=== PATIENT | male | born 1980 | race Caucasian/White ===

== ENCOUNTER 2017-09-25 20:30 | Observation (INO) | payer BC ==
[~2017-09-25] VITALS: Ht 193 cm; Wt 132.0 kg
[~2017-09-25 20:30] MED LIST: ACETAMINOPHEN-1 EAC1 PO; CLEOCIN HCL300 MG PO; HYDROCODONE-AP1 EAC6 PO; NEXIUM 40 MG CA40 M1 PO; VENTOLIN HFA 1818 GM INH; ZPAK PO
[2017-09-25 20:39] VITALS: BP 126/85
[2017-09-25] MEDS ORDERED: IMITREX100 MG PO (20:44)
[2017-09-25 21:15] LABS: ABSOLUTE EOSINOPHILS 0.1 thou/uL (0.0-0.7); ABSOLUTE LYMPHOCYTES 1.3 thou/uL (0.8-5.3); ABSOLUTE MONOCYTES 0.4 thou/uL (0.0-1.2); BASOPHILS 0.6 %; EOSINOPHILS 3.1 %; HEMATOCRIT 42.8 % (42.0-52.0); LYMPHOCYTES 34.5 %; MCH 28.7 pg (26.0-34.0); MCHC 32.8 g/dL (28.0-37.0); MCV 87.3 fL (80.0-100.0); MONOCYTES 10.5 %; MPV 8.7 fl. (7.2-11.1); NUCLEATED RBCS 0 /100WBC; PLATELET COUNT* 153 thou/uL (150-400); POLYS 51.3 %; RDW-CV 13.1 % (10.5-14.5); WBC 3.8 thou/uL (4.0-11.0)
[2017-09-25 21:19] LABS: ANION GAP 8 mmol/L (7-16); BUN 14 mg/dL (7-18); CALCIUM 8.9 mg/dL (8.5-10.1); CHLORIDE 106 mmol/L (98-107); CO2 27 mmol/L (21-32); CREATININE 1.1 mg/dL (0.6-1.3); GLUCOSE 99 mg/dL (70-99); POTASSIUM 4.3 mmol/L (3.5-5.1); SODIUM 141 mmol/L (136-145)
[2017-09-25 21:26] LABS: ALBUMIN 4.1 g/dL (3.4-5.0); ALKALINE PHOSPHATASE 56 U/L (46-116); SGOT 15 U/L (15-37); SGPT 35 U/L (30-65); TOTAL BILIRUBIN 0.6 mg/dL (<0.1-1.0); TOTAL PROTEIN 7.1 g/dL (6.4-8.2); TROPONIN-I LEVEL <0.06 ng/mL (<0.06)
[2017-09-25 21:30] LABS: INR 1.1; PROTIME 10.7 Seconds (9.20-11.50)
[2017-09-25 23:40] VITALS: BP 125/80
[2017-09-26 00:10] VITALS: BP 128/86
[2017-09-26 04:40] LABS: HEMATOCRIT 41.4 % (42.0-52.0); HEMOGLOBIN 13.6 gm/dL (14.0-18.0); MCH 28.6 pg (26.0-34.0); MCHC 32.8 g/dL (28.0-37.0); MCV 87.4 fL (80.0-100.0); MPV 9.7 fl. (7.2-11.1); RBC 4.73 mil/uL (4.50-6.00); RDW-CV 13.3 % (10.5-14.5); WBC 3.8 thou/uL (4.0-11.0)
[2017-09-26 05:14] LABS: ALBUMIN 3.5 g/dL (3.4-5.0); CALCIUM 8.5 mg/dL (8.5-10.1); POTASSIUM 4.3 mmol/L (3.5-5.1); TOTAL BILIRUBIN 0.6 mg/dL (<0.1-1.0)
--- NOTE | 2017-09-26 05:15 | NUR ---
PT ADMITTED FROM ER AT 2355. PT MOVED SEFL TO BED, GAIT STEADY. PT DENIES PAIN AND NUMBNESS AT THIS TIME. TELEMETRY PACK APPLIED WITH ALARMS SET. IV D5 1/2 WITH 20 KCL STARTED AND INFUSING AT 120CC/HR VIA PUMP. PT ORIENTED TO ROOM, BED CONTORLS, NURSE CALL BUTTON AND TV CONTROLS. PT VERBALIZED GOOD UNDERSTANDING. PT NPO AND IS AWARE OF STATUS. NO ACUTE CHANGES DURING SHIFT, WILL CONTINUE TO MONITOR
[2017-09-26 08:00] VITALS: BP 129/69
--- NOTE | 2017-09-26 09:29 | NUR ---
INITIAL ASSESSMENT: Pt evaluated for d/c planning needs. Reviewed chart. Pt lives in house with spouse and children. Pt was independent with ADL's and is employed outside the home. Pt plans on returning home on d/c from hospital. Will remain available to assist as needed.
--- NOTE | 2017-09-26 10:37 | EKG ---
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 Pilot: rivera trujillo : 1980 Requested By: Lucrecia Sanchez Order Number: [id number] MD: Michael Siddiqui Measurements Intervals [place] Rate: 51 P: 29 NH: 186 QRS: 4 QRSD: 101 T: 6 QT: 440 QTc: 406 Interpretive Statements Sinus bradycardia Left ventricular hypertrophy ST elev, probable normal early repol pattern Compared to ECG 05/03/2016 13:22:27 Left ventricular hypertrophy now present Electronically Signed On 09-26-2017 10:37:03 CDT by Michael Siddiqui [email or web address] <ELECTRONICALLY SIGNED> By: Michael Siddiqui MD, [facility] 09/26/17 1037 2150 49 Michael Siddiqui MD, [facility] /EPI
--- NOTE | 2017-09-26 11:00 | NUR ---
ASSUMED CARE OF REPORT AFTER REPORT AT 0730. PT A&OX4. VSS. PHYSICAL ASSESSMENT COMLPETED AND CHARTED. PT ON RA WITH 97% O2 SAT. PT IV LINE PATENT AND INTACT. PT UP ADLIB. PT IS SR/SB ON TELE. PT COMPLAINED OF HEADACHE WITH PAIN SCALE OF 2/10-DONT WANT ANY PAIN MEDS. RESUMED REGULAR DIET. MRI AND ECHO DONE.CALL LIGHT WITHIN REACH. WILL CONTINUE TO MONITOR PT.
[2017-09-26 12:04] VITALS: BP 129/77
--- NOTE | 2017-09-26 13:55 | 2DMMODE ---
[place] [address] 2 D/M-MODE ECHOCARDIOGRAM Name: INDIGO PERRY Room: [facility] ADM IN [facility]#: [id number] Admission: 09/25/17 Attend Phys: Ji Jefferson Discharge: Date of : 78 Date of Service: 09/26/17 1355 Report #: [id number] THIS REPORT FOR: //name// APPROVED REPORT Study performed: 09/26/2017 11:11:37 EXAM: Comprehensive 2D, Doppler, and color-flow Echocardiogram Patient Location: In-Patient Room #: [facility] Status: routine BSA: 2.60 HR: 48 bpm BP: 128/86 mmHg Rhythm: NSR Other Information Study Quality: Good Indications CVA/TIA Echo Enhancing Agent Indication: Rule out Shunt Agent(s) / Amount(s) Used: Agitated Saline 10 cc 2D Dimensions LVEF(%): 68.05 (>50%) IVSd: 12.37 (7-11mm) LVOT Diam: 22.92 (18-24mm) LVDd: 53.82 mm PWd: 11.78 (7-11mm) Ascending Ao: 31.75 (22-36mm) LVDs: 33.21 (25-40mm) Aortic Root: 38.61 mm Bernard's LVEF: 68.05 % Volumes Left Atrial Volume (Systole) LA ESV Index: 31.80 mL/m2 Aortic Valve AoV Peak Geovani.: 1.22 m/s AO Peak Gr.: 5.92 mmHg LVOT Max P.58 mmHg AO Mean Gr.: 3.37 mmHg LVOT Mean P.48 mmHg LVOT Max V: 1.18 m/s AO V2 VTI: 25.93 cm LVOT Mean V: 0.71 m/[place] [address] 2 D/M-MODE ECHOCARDIOGRAM Name: IDNIGO PERRY Room: [place] [address] ADM IN .R.#: [id number] Admission: 09/25/17 Attend Phys: Ji Jefferson Discharge: Date of : 78 Date of Service: 09/26/17 1355 Report #: [id number] CANDIS (VTI): 4.07 cm2 LVOT V1 VTI: 25.56 cm Mitral Valve E/A Ratio: 2.13 MV Decel. Time: 205.12 ms MV E Max Geovani.: 0.84 m/s MV PHT: 59.49 ms MVA (PHT): 3.70 cm2 TDI E/Lateral E': 4.00 E/Medial E': 7.64 Medial E' Geovani.: 0.11 m/s Lateral E' Geovani.: 0.21 m/s Pulmonary Valve PV Peak Geovani.: 1.03 m/s PV Peak Gr.: 4.27 mmHg Tricuspid Valve TR Peak Gr.: 24.87 mmHg RVSP: 29.00 mmHg Left Ventricle The left ventricle is normal size. There is normal LV segmental wall motion. Mild concentric left ventricular hypertrophy. Left ventricular systolic function is normal. The left ventricular ejection fraction is within the normal range. LVEF is 55-60%. The left ventricular diastolic function is normal. Right Ventricle Right ventricle is dilated. The right ventricular systolic function is normal. Atria Left atrium is mildly dilated. moderate right to left shunt at the interatrial level consistent with a PFO or ASD The right atrium size is normal. Aortic Valve The aortic valve is normal in structure. No aortic regurgitation is present. There is no aortic valvular stenosis. Mitral Valve The mitral valve is normal in structure. There is no mitral valve regurgitation noted. No evidence of mitral valve stenosis. Tricuspid Valve The tricuspid valve is normal in structure[place] [address] 2 D/M-MODE ECHOCARDIOGRAM Name: INDIGO PERRY Room: [place] [address] ADM IN M.R.#: [id number] Admission: 09/25/17 Attend Phys: Ji Jefferson Discharge: Date of : 78 Date of Service: 09/26/17 1355 Report #: [id number] regurgitation. The RVSP is ___29____ mmHg. Pulmonic Valve The pulmonary valve is normal in structure. There is no pulmonic valvular regurgitation. Great Vessels The aortic root is normal in size. IVC is normal in size and collapses with >50% inspiration Pericardium There is no pericardial effusion. <Conclusion> Mild concentric left ventricular hypertrophy. Right ventricle is dilated. Left atrium is mildly dilated. moderate right to left shunt at the interatrial level consistent with a PFO or ASD LVEF is 55-60%. <ELECTRONICALLY SIGNED> By: Michael Siddiqui MD, FACC 09/26/17 1355 1355 1355 Michael Siddiqui MD, FACC /INF
[2017-09-26 15:17] VITALS: BP 137/76
[2017-09-26] MEDS ORDERED: AMITRIPTYLINE H10 M3 PO (17:21)
[2017-09-26 17:26] VITALS: BP 137/76
--- NOTE | 2017-09-26 17:53 | NUR ---
ORDERS RECEIVED FOR DC. DISCONTINUED IV LINE AND FIELD ASSOCIATE. DC EDUCATION AND TEACHING GIVEN. WRITTEN EDUCATION AND SCRIPTS GIVEN. ALL QUESTIONS AND CONCERNS ADDRESSED. BELONGINGS PACKED AND ACOOUNTED FOR PT AND .PT ESCORTED PER TECH VIA WHEELCHAIR AT 1755. NO PROBLEMS TO NOTE AT TIME OF DC.
--- NOTE | 2017-09-26 18:02 | NUR ---
this RN has reviewed the charting, assesments and notes of Shayy NARANJO and agrees with charting. Pt discharged home with at approx 1800
--- NOTE | 2017-09-30 18:19 | CON ---
[address] [address] CONSULTATION Name: INDIGO PERRY DIANA Room: [address] IN M.R.#: [id number] Admission: 09/25/17 Attend Phys: Melany Quevedo Discharge: 09/26/17 Date of : 78 Report #: [id number] THIS REPORT FOR: //name// CC: Александр Jefferson DATE OF SERVICE: 09/26/2017 PRIMARY CARE PHYSICIAN: Dr. Joseph HISTORY OF PRESENT ILLNESS: The patient is a 37-year-old white male who I was asked to see in the hospital today because of a PFO. The patient has no history of heart disease. He does have a history of migraine headaches. He was seen by the neurologist at [facility] in [facility]. However, yesterday he had some numbness in the right side of his face. He came to the Emergency Room and was admitted to [place]. He was felt to have a TIA secondary to migraines. An echocardiogram showed evidence of PFO. I was asked to see him for further evaluation and treatment. He denies any history of heart murmur or chest pain. He does get short of breath with exertion. He has had no palpitations or syncope. PAST MEDICAL HISTORY: Significant for knee surgery, cholecystectomy, sinus surgery and hiatal hernia. MEDICATIONS: He takes Nexium. ALLERGIES: He has no known drug allergies. FAMILY HISTORY: His father had a heart attack. SOCIAL HISTORY: He is . He lives in [place]. 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 No smoking or alcohol abuse. REVIEW OF SYSTEMS: No history of stroke, asthma, peptic ulcer disease, liver disease, kidney disease, cancer or psychiatric illness. PHYSICAL EXAMINATION: GENERAL: Revealed a middle-aged male, appeared in no distress. VITAL SIGNS: He had a blood pressure of 130/70 and pulse 60. He is afebrile. HEENT: He is anicteric. Conjunctivae pink. Mucous membranes are moist. NECK: Neck veins are not distended. No carotid bruits. Neck is supple. CHEST: Clear to auscultation. CARDIOVASCULAR: Regular rate and rhythm without murmur. ABDOMEN: Soft and nontender. EXTREMITIES: Had no edema. Posterior tibial pulse 2+ [place] [address] CONSULTATION Name: INDIGO PERRY Room: [address]#: [id number] Admission: 09/25/17 Attend Phys: Melany Quevedo Discharge: 09/26/17 Date of : 78 Report #: [id number] SKIN: Warm and dry. NEUROLOGIC: Nonfocal. LABORATORY DATA: ECG showed a sinus rhythm with sinus bradycardia, no significant ST or T-wave changes. Lab work: The patient had sodium 143 and creatinine 1.0. Liver function studies were normal. TSH 2.6. White blood cell count 3.8 and hemoglobin 13.6. X-rays: The patient had a chest x-ray that showed normal heart size and clear lung eckert. IMPRESSION AND RECOMMENDATIONS: 1. PFO. Incidental finding. 2. Migraine headaches. If refractory to medical therapy, would consider percutaneous closure of the PFO. With this in mind, I have recommended an outpatient AZAM to assess the PFO. 3. Hiatal hernia. <ELECTRONICALLY SIGNED> By: Michael Siddiqui MD, [facility] 09/30/17 1819 1645 [id number] Siddiqui MD, FAC /nt
[2017-10-01] MEDS ORDERED: PREDNISONE10 MG PO (08:25)
[2017-10-01] MEDS ORDERED: ASPIRIN325 PO (10:07)
== END 2017-09-26 17:59 | disposition home or self-care (01) ==
LOC: M.ERS 20:30 → M.TBA-ER 23:03 → M.2W 23:03
PROVIDERS: Emergency Medicine; ADMIT Internal Medicine
DX: G43.809 Other migraine, not intractable, without status migrainosus (principal); Q21.1 Atrial septal defect; R20.2 Paresthesia of skin; K21.9 Gastro-esophageal reflux disease without esophagitis; K46.9 Unspecified abdominal hernia without obstruction or gangrene; Z87.891 Personal history of nicotine dependence; Z90.49 Acquired absence of other specified parts of digestive tract; Z79.899 Other long term (current) drug therapy; Z98.890 Other specified postprocedural states; Z72.89 Other problems related to lifestyle

== ENCOUNTER → 2017-10-01 | Outpatient (CLI) | payer BC ==
[2017-10-01] VITALS (8 sets, daily range): BP systolic 101–138; BP diastolic 59–75
[~2017-10-01] MED LIST changes: +AMITRIPTYLINE H10 M3 PO; +ASPIRIN325 PO; +IMITREX100 MG PO; +PREDNISONE10 MG PO
--- NOTE | 2017-10-02 10:40 | TEE ---
[place] [address] TRANSESOPHAGEAL ECHOCARDIOGRAM Name: ORLANDOINDIGO DIANA Room: [facility]#: [id number] Admission: 10/01/17 Attend Phys: Michael Siddiqui MD Discharge: Date of : 78 Date of Service: 10/02/17 1039 Report #: [id number] THIS REPORT FOR: //name// APPROVED REPORT Study performed: 10/01/2017 08:54:12 EXAM: Transesophageal Echocardiogram Patient Location: Out-Patient Status: routine BSA: 2.59 HR: 72 bpm BP: 137/86 mmHg Rhythm: NSR Other Information Study Quality: Good Indications PFO Echo Enhancing Agent Indication: Rule out Shunt Agent(s) / Amount(s) Used: Agitated Saline 20 cc Procedure After obtaining informed consent, patient underwent transesophageal echo in the [facility]. Type of Sedation : Conscious Sedation Sedation was administered by Marina Worrell RN. Sedation start time: 909 Case end Time: 931 Sedation was achieved intravenously with: Versed (8) Fentanyl (50) Transesophageal probe was inserted and advanced into esophagus without difficulty by Michael Siddiqui MD, FACC. Echo enhancement indication: R/O Septal defect. Echo enhancement agent administered: Agitated Saline The AZAM was performed without complications. Throughout the procedure, the blood pressure, pulse oximetry, cardiac rhythm, and rate were monitored. The patient tolerated the procedure without adverse effects. Recovery from conscious sedation was uneventful and vital signs were stable. Left Ventricle [address] [address] TRANSESOPHAGEAL ECHOCARDIOGRAM Name: INDIGO PERRY Room: [facility] Suhail#: [id number] Admission: 10/01/17 Attend Phys: Michael Siddiqui MD Discharge: Date of : 78 Date of Service: 10/02/17 1039 Report #: [id number] The left ventricle is normal size. There is normal LV segmental wall motion. Mild concentric left ventricular hypertrophy. Left ventricular systolic function is normal. The left ventricular ejection fraction is within the normal range. LVEF is 55-60%. Right Ventricle The right ventricle is normal size. The right ventricular systolic function is normal. Atria No thrombus is visualized in the left atrium or appendage. The left atrium size is normal. No bubbles noted in left atrium to suggest a right to left shunt The right atrium size is normal. Aortic Valve The aortic valve is normal in structure. No aortic regurgitation is present. There is no aortic valvular stenosis. Mitral Valve The mitral valve is normal in structure. There is no mitral valve regurgitation noted. No evidence of mitral valve stenosis. Tricuspid Valve The tricuspid valve is normal in structure. Trace tricuspid regurgitation. Pulmonic Valve The pulmonary valve is normal in structure. There is no pulmonic valvular regurgitation. Great Vessels The aortic root is normal in size. Pericardium There is no pericardial effusion. <Conclusion> LVEF is 55-60%. No bubbles noted in left atrium to suggest a right to left shunt No thrombus is visualized in the left atrium or appendage. The left atrium size is normal. <ELECTRONICALLY SIGNED> By: Michael Siddiqui MD, FACC 10/02/17 1039 1039 1039 Michael Siddiqui MD, FACC /INF
== END | disposition home or self-care (01) ==
LOC: M.CL 07:33
DX: I36.1 Nonrheumatic tricuspid (valve) insufficiency (principal); Z91.041 Radiographic dye allergy status; Z79.82 Long term (current) use of aspirin; Z79.899 Other long term (current) drug therapy